=== PATIENT | female | born 1970 | race Asian ===

== ENCOUNTER 2017-06-17 14:11 | Outpatient (CLI) | payer OTHER ==
--- NOTE | 2017-06-17 18:34 | ULT ---
PELVIC ULTRASOUND WITH TRANSVAGINAL IMAGIN06/17/17 Ultrasonography of the pelvis was performed for evaluation of inability to conceive. There is an inco mplete patient history. There may have been a partial hysterectomy and/or oophorectomy. Ultrasonograp hy was done using both the abdominal and endovaginal probes. A moderate amount of free fluid is seen in the posterior cul-de-sac. It was difficult to visualize th is patient's pelvis, but no obvious ovaries were found. In the midline, there is a rounded soft tissu e density that could either be residual uterus or mass. One could not determine and be certain. It me asured 3.2 x 2.7 x 2.7 cm. Given this structure and free fluid, it may be worthwhile doing either a C T or an MRI of the patient's pelvis to better define what is present. IMPRESSION: Midline pelvic "mass" that could be what is partially left of the uterus if there was a partial hyste rectomy. No ovaries definitely visualized. There is moderate free fluid. POS: HOME
== END 2017-06-17 14:12 | disposition home or self-care (01) ==
LOC: BURULT 14:11
PROVIDERS: ATTEND Physician Assistant
DX: N97.9 Female infertility, unspecified (principal)
CPT/HCPCS: 76856